=== PATIENT | female | born 1990 | race Caucasian/White ===

== ENCOUNTER 2016-08-07 16:50 | Emergency (ER) | payer BC ==
[2016-08-07 17:10] VITALS: BP 139/80
[2016-08-07] MEDS ORDERED: DOXYcycline CAP(*) 100 MG PO ONE (18:17)
[2016-08-07] MEDS ORDERED: Lidocaine/Epineph/Tetraca SOL* (LET solution) 4 ML BTL ONE (18:20)
[2016-08-07] MEDS: Lidocaine/Epineph/Tetraca SOL* (LET solution) 4 ML BTL TOPICAL ONE (18:23)
[2016-08-07] MEDS ORDERED: DOXYcycline CAP(*) 100 MG PO SCH (21:00)
--- NOTE | 2016-08-07 22:08 | UC ---
Edmond Alex Erika, scribed for Zoila Lima MD on 08/07/16 at 1802 . Skin Complaint HPI - HPI Summary HPI Summary: Patient is a 26-year-old female presenting to [facility] with a CC of an abscess to her right hand for the past 5 days. Patient rates the pain a constant 10/10. Patient states she has many allergies to pain medications and antibiotics, but can take docycycline and topical lidocaine. 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 Pt reports surgical removal of an abscess in her axilla. - History of Current Complaint Chief Complaint: UCSkin Time Seen by Provider: 08/07/16 17:46 Stated Complaint: SKIN COMPLAINT Hx Obtained From: Patient, Family/Lathe Tender - Luiz Olivier, male friend with pt Hx Last Menstrual Period: 2 YEARS AGO ?: No Onset/Duration: Gradual Onset, Lasting Days - 5, Still Present Timing: Constant Onset Severity: Severe Current Severity: Severe Pain Intensity: 10 Pain Scale Used: 0-10 Numeric Location: Hand (Right) Character: Redness, Raised, Painful Aggravating: Touch Alleviating: Nothing Associated Signs & Symptoms: Positive: Tenderness. Negative: Red Streaks Related History: Other: - upon additional questioning pt's male friend states that pt last injected IV heroin on 08/05/16 - Allergy/Home Medications Allergies/Adverse Reactions: Allergies Allergy/AdvReac Type Severity Reaction Status Date / Time Lidocaine Allergy Severe SWELLING, Verified 08/07/16 17:12 PAIN MULTIPLE ANTIBIOTIC ALLERGIES Allergy Severe DIFFERING Uncoded 08/07/16 17:11 REACTIONS Home Medications: Home Medications Control Pill* 1 tab PO DAILY 08/07/16 [History Confirmed 08/07/16] DULoxetine CAP* [Cymbalta CAP*] 90 mg PO DAILY 08/07/16 [History Confirmed ] Review of Systems Constitutional: Negative Skin: Other - painful abscess to the right hand Eyes: Negative ENT: Negative Respiratory: Negative Cardiovascular: Negative Gastrointestinal: Negative Genitourinary: Negative Motor: Negative Neurovascular: Negative Musculoskeletal: Negative Neurological: Negative Psychological: Negative All Other Systems Reviewed And Are Negative: Yes PMH/Surg Hx/FS Hx/Imm Hx Previously Healthy: No - IVDU Respiratory History Of: Reports: Asthma - Surgical History Surgical History: Yes Surgery Procedure, Year, and Place: MULTIPLE SURGERIES FOR MRSA INFECTIONS, TONSILLECTOMY, EAR TUBES X2 - Family History Known Family History: Positive: Diabetes, Other - breast cancer, ovarian cancer - Social History Alcohol Use: Daily Alcohol Amount: 1 GLASS WINE/DAY Substance Use Type: Heroin, Marijuana Smoking Status (MU): Current Some Day Smoker Type: Cigarettes Amount Used/How Often: 1 PPD Physical Exam Triage Information Reviewed: Yes Appearance: Well-Appearing, Well-Nourished, Pain Distress, Signs of Trauma - signs of IVDU, Other: - Odor similar to EtOH noted Vital Signs: Initial Vital Signs Temp 97.8 F 08/07/16 17:05 Pulse 115 08/07/16 17:05 Resp 16 08/07/16 17:05 BP 139/80 08/07/16 17:05 Pulse Ox 98 08/07/16 17:05 Vital Signs Reviewed: Yes Eyes: Positive: Conjunctiva Clear ENT: Positive: Normal ENT inspection Neck: Positive: Supple Respiratory: Positive: No respiratory distress Cardiovascular: Positive: RRR, Pulses Normal, Brisk Capillary Refill Musculoskeletal: Positive: Strength Intact, ROM Intact Neurological: Positive: Alert, Muscle Tone Normal Psychological Exam: Normal Skin Exam: Other - 3 cm rasied abscess on the dorsum of the right hand over the 3rd and 4th metatarsals. There is swelling of the dorsum of the hand. There is redness and pain on palpation. Track mendoza on the left inner elbow and bilateral thumbs Re-Evaluation - Re-Evaluation First Eval Re-Evaluation Time: 18:29 Comment: Discussed Dr. Lozoya's recommendations with patient. Pt reports she injects heroin, and friend with patient states she most recently injected 2 days ago. Patient reports she has injected in her thumbs and her inner elbow veins, but not in the dorsum of her hand. Patient is offered transfer to the ED for further testing and drainage of the abscess, but she declines and elopes from [facility]. Pt refused to sign AMA paperwork. Course/Dx - Course Course Of Treatment: LET applied at 18:23. Doxycycline administered. discussed with Dr. Lozoya. Pt may be seen tomorrow by orthopedics. Pt eloped after hx of IVDU is evident and advised to go to ED for further eval of swelling to determine clot vs abscess. Luiz Olivier witnessed the encounter and understands my recommendations. Pt ripped up the AMA form. Pt states she can't afford the $150 copay to go to the ED. States she is going to "drain it herself". Pt is risk for sepsis and risk for endocarditis with her hx MRSA. Advised pt that her RX for doxycycline is at her pharmacy. - Differential Diagnoses - Skin Complaint Differential Diagnoses: Abscess, Cellulitis, MRSA, Other - clot - Diagnoses Provider Diagnoses: AMA - Physician Notification/Consults Discussed Patient Care With: Call out to Dr. Lozoya (orthopedics) at 18:23 - recommends draining the abscess now. (before hx of heroin use is known). She is aware of patient. recommends follow up tomorrow. (before hx of IVDU known). Discharge - Discharge Plan Condition: Stable Disposition: AGAINST MEDICAL ADVICE Discharge Disposition Comment: Elopement Prescriptions: DOXYcycline CAP(*) [DOXYcycline 100MG CAP(*)] 100 mg PO BID #20 cap The documentation as recorded by the Edmond hernandez Erika accurately reflects the service I personally performed and the decisions made by me, Zoila Lima MD.
== END 2016-08-07 18:48 | disposition left against medical advice (07) ==
LOC: UCEAST 16:50
DX: L02.511 Cutaneous abscess of right hand (principal); Z53.20 Procedure and treatment not carried out because of patient's decision for unspecified reasons
CPT/HCPCS: 99202; A9270-GY; G0463

== ENCOUNTER 2016-08-08 01:42 | Emergency (ER) | payer BC ==
[2016-08-08 02:09] VITALS: BP 140/88
[2016-08-08] MEDS ORDERED: DOXYcycline IV* 100 MG in NS 0.9% 250 ML* 250 ML IVPB ONE (02:09)
--- NOTE | 2016-08-08 02:16 | ED ---
Miki Alex Rebecca, scribed for Nir Perez MD on 08/08/16 at 0212 . Skin Complaint - HPI Summary HPI Summary: Pt is a 26 y/o F who presents to ED with a CC of R-hand abscess. Abscess is erythematous and raised, on the doral surface of the hand. Pt reports abscess has been present and worsening for 5 days. Sx aggravated and alleviated by nothing. Denies fever. Prior similar episodes (6th episode in the last 5 years) with a dx of Staph. pt was seen at urgent care yesterday, left ama - History of Current Complaint Time Seen by Provider: 08/08/16 02:07 Stated Complaint: RIGHT HAND ABCESS Hx Obtained From: Patient Hx Last Menstrual Period: 2 YEARS AGO Onset/Duration: Started Days Ago - 5 days, Still Present Timing: Constant Onset Severity: Moderate Current Severity: Moderate Skin Location: Hand - right Character: Redness, Raised Aggravating Symptom(s): Nothing Alleviating Symptom(s): Nothing Associated Signs & Symptoms: Negative - Allergy/Home Medications Allergies/Adverse Reactions: Allergies Allergy/AdvReac Type Severity Reaction Status Date / Time Lidocaine Allergy Severe SWELLING, Verified 08/07/16 17:12 PAIN MULTIPLE ANTIBIOTIC ALLERGIES Allergy Severe DIFFERING Uncoded 08/07/16 17:11 REACTIONS PMH/Surg Hx/FS Hx/Imm Hx Endocrine/Hematology History: Denies: Hx Diabetes Cardiovascular History: Denies: Hx Hypertension Respiratory History: Reports: Hx Asthma - Surgical History Surgery Procedure, Year, and Place: MULTIPLE SURGERIES FOR MRSA INFECTIONS, TONSILLECTOMY, EAR TUBES X2 Infectious Disease History: Reports: Hx of Known/Suspected MRSA - Family History Known Family History: Positive: Diabetes, Other - breast cancer, ovarian cancer - Social History Alcohol Use: Daily Alcohol Amount: 1 GLASS WINE/DAY Substance Use Type: Reports: Heroin, Marijuana Smoking Status (MU): Current Some Day Smoker Type: Cigarettes Amount Used/How Often: 1 PPD Review of Systems Negative: Fever Positive: Other - Right hand abscess All Other Systems Reviewed And Are Negative: Yes Physical Exam Triage Information Reviewed: Yes Vital Signs On Initial Exam: Initial Vitals Temp Pulse Resp BP Pulse Ox 98.2 F 108 18 140/88 95 08/08/16 02:04 08/08/16 02:04 08/08/16 02:04 08/08/16 02:04 08/08/16 02:04 Vital Signs Reviewed: Yes Appearance: Positive: Well-Appearing, Pain Distress - mild discomfort Skin: Positive: Warm Head/Face: Positive: Normal Head/Face Inspection Eyes: Positive: ZOHREH ENT: Positive: Hearing grossly normal Neck: Positive: Supple Respiratory/Lung Sounds: Positive: Clear to Auscultation, Breath Sounds Present Cardiovascular: Positive: RRR Abdomen Description: Positive: Nontender, Soft Musculoskeletal: Positive: Other - rt hand diffuse warmth, erythema on volar surfaqce, small area of fluctuance over 3rd mcp area mild lymphangitic streaking pain with flexion of fingers Neurological: Positive: Normal Psychiatric: Positive: Affect/Mood Appropriate Procedures - Incision and Drainage Site: rt hand Anesthesia: Topical Instrument(s): Needle - 1.5 cc purulent material drained Diagnostics - Vital Signs Vital Signs Temp Pulse Resp BP Pulse Ox 08/08/16 02:04 98.2 F 108 18 140/88 95 - Laboratory Result Diagrams: 08/08/16 02:35 08/08/16 02:35 Lab Statement: Any lab studies that have been ordered have been reviewed, and results considered in the medical decision making process. - Radiology Hand XR Xray Interpretation: No Acute Changes Radiology Interpretation Completed By: ED Physician Re-Evaluation - Re-Evaluation First Eval Re-Evaluation Time: 03:30 - explained to pt need for admission and iv abx explained possible loss of hand, worsening infection, pt understands but refuses to stay in hospital pt walked out of ed without signing ama form Course/Dx - Course Assessment/Plan: Pt is a 26 y/o F with a CC of R-hand abscess for 5 days. Denies any fever. 5 previous similar episodes, with a dx of Staph, per pt. Pt refused to stay in the ED and left AMA. - Diagnoses Provider Diagnoses: Cellulitis of hand Discharge - Discharge Plan Condition: Good Disposition: AGAINST MEDICAL ADVICE Referrals: Non Staff,Doctor [Primary Care Provider] - The documentation as recorded by the Miki hernandez Rebecca accurately reflects the service I personally performed and the decisions made by me, Nir Perez MD.
[2016-08-08 02:44] LABS: Hematocrit 44 % (35-47); Hemoglobin 14.4 g/dl (12.0-16.0); Mean Corpuscular HGB Conc 33 g/dl (31-36); Mean Corpuscular Hemoglobin 28 pg (27-31); Mean Corpuscular Volume 86 fL (80-97); Mean Platelet Volume 10 um3 (7.4-10.4); Red Blood Count 5.09 10^6/ul (4.0-5.4); Red Cell Distribution Width 15 % (10.5-15); White Blood Count 15.7 10^3/ul (3.5-10.8)
[2016-08-08 03:10] LABS: Albumin 4.1 g/dL (3.2-5.2); BUN/Creatinine Ratio 16.7 (8-20); Calcium 9.6 mg/dL (8.6-10.3); EGFR African American 202.7 (>60); EGFR Non-African American 157.6 (>60); Globulin 3.3 g/dL (2-4); Total Bilirubin 0.3 mg/dL (0.2-1.0); Total Protein 7.4 g/dL (6.4-8.9)
[2016-08-08] MEDS ORDERED: DOXYcycline CAP(*) 100 MG PO ONE (03:18)
[2016-08-08] MEDS ORDERED: Ethyl Chloride SPRAY (NF) BTL ONE (03:44)
[2016-08-08] MEDS ORDERED: Ketorolac INJ* 60 MG/2 ML VIAL IM ONE (04:03)
--- NOTE | 2016-08-08 07:51 | RAD ---
INDICATION: Right hand abscess COMPARISON: None. TECHNIQUE: 2 views of the right hand were obtained. FINDINGS: Overlying the dorsal hand there is thickening and subcutaneous induration. The adequately corticated bones are in normal alignment. No significant focal osseous abnormality or fracture is seen. Joint spaces appear maintained. IMPRESSION: Soft tissue swelling without underlying bony abnormality or subcutaneous foreign body. If the patient's symptoms persist, follow-up imaging is recommended.
== END 2016-08-08 04:22 | disposition left against medical advice (07) ==
LOC: ED 01:42
DX: L03.113 Cellulitis of right upper limb (principal); L02.511 Cutaneous abscess of right hand; Z72.0 Tobacco use
CPT/HCPCS: 36415; 80053; 85025; 96372; 99282; A9270-GY

== ENCOUNTER 2016-08-08 08:26 | Inpatient (IN) | payer BC ==
[2016-08-08] MEDS ORDERED: Vancomycin(*) 1,000 MG in NS 0.9% 250 ML* 250 ML IVPB ONE (09:11)
[2016-08-08] MEDS ORDERED: NS 0.9% 1000 ML* 2,000 ML IV ONE (09:12)
[2016-08-08 09:31] LABS: Hematocrit 45 % (35-47); Hemoglobin 14.5 g/dl (12.0-16.0); Mean Corpuscular HGB Conc 33 g/dl (31-36); Mean Corpuscular Hemoglobin 28 pg (27-31); Mean Corpuscular Volume 86 fL (80-97); Mean Platelet Volume 10 um3 (7.4-10.4); Red Blood Count 5.18 10^6/ul (4.0-5.4); Red Cell Distribution Width 15 % (10.5-15)
[2016-08-08 09:48] LABS: BUN/Creatinine Ratio 12.5 (8-20); Calcium 9.3 mg/dL (8.6-10.3); EGFR African American 169.6 (>60); EGFR Non-African American 131.9 (>60); Globulin 3.3 g/dL (2-4); Potassium 4.1 mmol/L (3.5-5.0); Total Bilirubin 0.3 mg/dL (0.2-1.0); Total Protein 7.3 g/dL (6.4-8.9)
[2016-08-08] MEDS ORDERED: Nicotine PATCH 21 MG/24 HR* PATCH TRANSDERM ONE (11:24)
[2016-08-08] MEDS ORDERED: Nicotine PATCH 21 MG/24 HR* PATCH ONE (11:25)
[2016-08-08] MEDS ORDERED: diPHENhydraMINE PO* 25 MG PO PRN (15:28)
[2016-08-08] MEDS ORDERED: Ondansetron TAB* 4 MG PO PRN (15:28)
[2016-08-08] MEDS ORDERED: oxyCODONE/Acetamin 5/325 MG* TAB PO PRN ×2 (15:28→17:23)
[2016-08-08] MEDS ORDERED: Ondansetron INJ* 2 MG/ML VIAL IV PRN (15:28)
[2016-08-08] MEDS ORDERED: Acetaminophen TAB* 325 MG PO PRN (15:28)
[2016-08-08] MEDS ORDERED: NS 0.9% 1000 ML* 1,000 ML IV SCH (15:30)
[2016-08-08] MEDS ORDERED: Piperac/Tazob 3.375 gm in NS* 3.375 GM/100 ML BAG IVPB ONE (16:30)
[2016-08-08] MEDS ORDERED: Morphine INJ* 2 MG/ML 1 ML CARPUJECT IV PRN (17:25)
[2016-08-08] MEDS ORDERED: Vancomycin(*) 0 MG in NS 0.9% 250 ML* 250 ML IVPB SCH (18:00)
[2016-08-08] MEDS ORDERED: Vancomycin per Pharmacy* NOTE FOLLOW UP PRN (18:24)
[2016-08-08] MEDS ORDERED: Nicotine Patch Removal NOTE PATCH OFF SCH (21:00)
[2016-08-08] MEDS: Morphine INJ* 2 MG/ML 1 ML CARPUJECT IM PRN ×2 (21:25→23:42)
--- NOTE | 2016-08-08 21:25 | CONS ---
CONSULTATION REPORT: DATE OF CONSULT: 08/08/16 PRIMARY CARE PROVIDER: Dr. Grant from [place], [place]. The fax number is . CONSULTATIONS REQUESTED BY: Dr. Do from emergency department and Dr. Lozoya from Orthopedic Surgery. CHIEF COMPLAINT: Right hand abscess. HISTORY OF PRESENT ILLNESS: Ms. Landers is a 26-year-old female with history of MRSA infections in the past and multiple abscesses in the past, as well as IV heroin use, who presented originally to our [facility] on 08/07/16 with complaints of right hand abscess for 5 days. The patient was directed to our ED to be further evaluated, but she eloped from [facility] without signing against medical advice documentation. She came back to our facility in the juvenile justice officer hours of 08/08/16. She was also told by the ER physician that she needs to have an I and D of the abscess and most likely will require IV antibiotics. At this point, she also walked out of the ER. She came back 5 hours later on the same day; and currently, she is willing to stay to have the abscess I and D'd. The Orthopedic Surgery physician kindergarten teacher assistant saw and evaluated the patient. Apparently, due to the patient's history of being ALLERGIC TO LOCAL INJECTION of LIDOCAINE, the patient is planned for a general anesthesia for an I and D of the hand abscess. Due to that she ate within the past couple of hours, the surgery is planned for the morning. Medical assistance was requested by both the ER physician and the orthopedic surgeon in regards to the patient's treatment of the right hand abscess. PAST MEDICAL HISTORY: 1. History of right axillary abscess I and D'd in 2011. The patient stated that that abscess was MRSA positive and she was treated with doxycycline as an outpatient. 2. The patient has also history of right flank abscess on the skin, also I and D'd in the ER in [place] a couple of years ago. 3. Most recently, the patient had right forearm abscess 6 months ago that she stated that she evacuated by herself. OUTPATIENT MEDICATIONS: Include: 1. Cymbalta 90 mg daily. 2. control pills on a daily basis. ALLERGIES: Include LOCAL INJECTION of LIDOCAINE as well as CEPHALEXIN and LEVOFLOXACIN. FAMILY HISTORY: Positive for father with history of COPD, diabetes, hypertension, and heart disease. Mother with history of COPD. Maternal grandmother with history of abdominal cancer as well as breast cancer. Maternal grandfather with history of brain cancer. SOCIAL HISTORY: The patient has a history of smoking 1 pack per day ever since she turned 14. She drinks a couple of glasses of alcohol a day, usually wine. She has history of IV heroin use; last time she used was approximately 3 or 4 days ago. 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 She is single and her surrogate is her male partner. His name is Demar Olivier, phone number [phone]. REVIEW OF SYSTEMS: The patient stated that she felt "feverish" for the past couple of days, but no documented fevers. Her appetite has been good. She denies any rigors or chills. The right hand is painful and the abscess was aspirated at [facility] 24 hours ago. The remaining review of systems were reviewed with the patient and were otherwise negative. PHYSICAL EXAM: Blood pressure 117/82, heart rate of 102 and regular, respiratory rate 16, oxygen saturation 95% on room air, and temperature of 98.0. General: The patient is a very pleasant 26-year-old female who is in no acute distress. The patient is alert, awake, and oriented x3. HEENT: Head: Atraumatic, normocephalic. Eyes: Pupils equal, reactive to light and accommodation. Oropharynx clear. Mucosa moist. Poor dentition. Neck: Supple. No JVD, no bruit bilaterally. Cardiovascular: Regular rate and rhythm. No murmur. Respiratory: Clear to auscultation bilaterally. Abdomen: Soft, nontender. Bowel sounds present in all 4 quadrants. Extremities: There is right hand edema. On the dorsum of the right hand, the patient has a loculation of approximately 2 cm in diameter. The abscess is tender to palpation with some superficial edema and A small area of cellulitis surrounding. The patient has no problems with moving her right wrist and the joints of her fingers. Evaluation of the other extremities - the patient has track mendoza in bilateral antecubital areas with no evidence of cellulitis. Pulses are +2 bilaterally. There is no pedal edema noted bilaterally. Skin Evaluation: As mentioned above. Otherwise unremarkable. Neuro Evaluation: Speech clear. Cranial nerves II through XII grossly intact. Motor strength is 5 /5 bilaterally. DIAGNOSTIC STUDIES/LAB DATA: Showed a white blood cell count of 16.0, hemoglobin of 14.5, hematocrit of 45, and platelets of 216. Sodium was 136, potassium 4.1, chloride 101, carbon dioxide 27, BUN 7, creatinine 0.56. Liver functions were unremarkable. Lactic acid was 1.2. Hand x-rays, impression: "Soft tissue swelling without underlying bony abnormality or subcutaneous foreign body." ASSESSMENT AND PLAN: In regards to right dorsum of the hand abscess, an I and D is planned as recommended by orthopedic surgeons in the morning. Due to the patient's history of REACTION TO LIDOCAINE that was demonstrated in the past as extreme burning, pain, and edema, the patient is going to most likely have general anesthesia for the procedure with Dr. Lozoya in the morning. In regards to cellulitis and abscess treatment, I suspect that it is again MRSA. Cultures obtained from the aspiration of the abscess a day prior are pending; but so far, it appears polymicrobial with 4+ gram-positive cocci as well as gram-positive bacilli and gram-negative bacilli. In fact, at this point , it appears that the cultures just came back as MRSA negative. The patient received a dose of intravenous vancomycin in the emergency department. It appears that for this polymicrobial infection, Zosyn also may be a good antibiotic to continue until the I and D is completed. As outpatient, doxycycline as the patient used before appears to be a good option. In regards to tobacco use, the patient is going to be placed on nicotine patch and inhaler to ease withdrawal symptoms. For her DVT prophylaxis, the patient is ambulatory and low risk. Thank you very much for allowing me to participate in your patient's care. We will see the patient on a daily basis. CC: Dr. Grant from [place], [place], the fax number is [phone]; Dr. Lozoya * [id number]/[facility] #: [id number] [facility]
[2016-08-08] MEDS: Vancomycin(*) 1,000 MG in NS 0.9% 250 ML* 250 ML IVPB SCH (21:28)
[2016-08-08] MEDS: Piperac/Tazob 3.375 gm in NS* 3.375 GM/100 ML BAG IVPB SCH (21:28)
[2016-08-08] MEDS ORDERED: Mouth Piece, Nicotine* 1 EACH CARTRIDGE ONE (21:38)
[2016-08-08] MEDS: Nicotine Inhaler* 10 MG AMP INH PRN (21:39)
[2016-08-08] MEDS: Nicotine PATCH 21 MG/24 HR* PATCH TRANSDERM SCH (23:36)
[2016-08-09] MEDS: Vancomycin(*) 1,000 MG in NS 0.9% 250 ML* 250 ML IVPB SCH ×4 (03:36→16:36)
[2016-08-09] MEDS: Piperac/Tazob 3.375 gm in NS* 3.375 GM/100 ML BAG IVPB SCH ×3 (06:26→19:03)
--- NOTE | 2016-08-09 07:46 | HP ---
HISTORY AND PHYSICAL: DATE OF ADMISSION: 08/08/16 DATE OF SURGERY: 08/09/16 SURGEON: Kaushik Lozoya MD PROCEDURE: I and D, right hand. CHIEF COMPLAINT: Right hand pain. HISTORY OF PRESENT ILLNESS: Anel is a 26-year-old female who noticed swelling and pain in her right hand which started approximately 5 days ago. She then noticed significant swelling, dorsal aspect of the right hand with redness and warmth. She has a history of multiple staph infections in the past. She presented to urgent care yesterday and left AMA and then presented to the emergency department early this a.m. She denies any fevers, shakes, or chills. PAST MEDICAL HISTORY: 1. Asthma. 2. IV drug abuse. PAST SURGICAL HISTORY: 1. I and D's for multiple infections. 2. Tonsillectomies and a ear tube placement. CURRENT MEDICATIONS: Duloxetine and unknown control. ALLERGIES: To LIDOCAINE, LEVOFLOXACIN, and KEFLEX. FAMILY HISTORY: Diabetes, breast cancer, ovarian cancer. SOCIAL HISTORY: She is a 26-year-old female. She is a known IV drug user, heroin. She also reports marijuana use and smokes cigarettes. REVIEW OF SYSTEMS: A complete 14-point review of systems was reviewed with the patient. It was positive for past skin infections with MRSA. She denies hepatitis C or HIV. She denies any anesthesia problems, DVT, or PE. PHYSICAL EXAMINATION GENERAL: She is well developed, well nourished in no acute distress. VITAL SIGNS: She is afebrile. Her vital signs are stable. Her blood pressure 140/88, heart rate is 108. HEENT: Normocephalic, atraumatic. NECK: Supple. Trachea is midline. PULMONARY: The lungs are clear to auscultation bilaterally. CARDIO: Regular rate and rhythm. ABDOMEN: Soft, nontender, nondistended. NEUROLOGICAL: She is alert and oriented x3 and cranial nerves II through XII are intact. MUSCULOSKELETAL: Right hand is diffusely warm. Significant erythema on the volar surface. There is a 1/2-dollar size area of fluctuance over the third metacarpal. She has pain with active and passive range of motion on the right wrist and finger flexion. She has good capillary refill, 2+ distal radius pulses. ASSESSMENT AND PLAN: Anel is a 26-year-old female with 5-day history of swelling and pain of her right hand. She has a history of multiple staph infections in the past. She presents with right hand cellulitis. She is a known IV drug abuser. She is being admitted under Dr. Lozoya and is scheduled for an I and D of the right hand tomorrow. She will be placed on IV antibiotics and kept n.p.o. after midnight. POLI KRISHNAN Addendum Seen and examined. Agree with above. H/o IV drug abuse with abscess in right hand. Will plan for open I and D of right dorsum of the hand. [id number]/[facility] #: [id number] MTDD
[2016-08-09] MEDS: Nicotine PATCH 21 MG/24 HR* PATCH TRANSDERM SCH (08:08)
[2016-08-09] MEDS: Morphine INJ* 2 MG/ML 1 ML CARPUJECT IM PRN (08:09)
[2016-08-09] MEDS ORDERED: BIRTH CONTROL PILL PO SCH (09:00)
[2016-08-09] MEDS: DULoxetine DR CAP* 30 MG CAP.DR PO SCH ×2 (09:30→17:32)
--- NOTE | 2016-08-09 10:27 | PN ---
Progress Note - Progress Note SOAP: Subjective: NPO. Groggy and difficult to arouse. Not cooperative with nursing staff. IV lost access last evening. Meds given IM. Vanco deferred until this AM. IV access obtained with [facility] guidance. Refusing IV fluids and abx per nursing. Objective: Temp Pulse Resp BP Pulse Ox 97.5 F 101 16 122/75 100 08/09/16 07:30 08/09/16 07:30 08/09/16 09:09 08/09/16 07:30 08/09/16 08:16 NAD. AAOx3. Right hand dorsum with erythema and warmth. Fluctuant mass with surrounding erythema. Blood blister evident. Sensate to light to grossly. Able to flex/ext digits, thumbs up, ok sign. 2+ radial pulse Assessment: right hand abscess with surrounding cellulitis in IVDA Plan: Vanco IV NPO with IVF plan for right hand open I and D today. potential d/c home tomorrow
[2016-08-09 10:55] LABS: UR Preg Internal Control QC Line Present
[2016-08-09] MEDS ORDERED: Metoclopramide TAB* 10 MG PO ONE (11:07)
[2016-08-09] MEDS ORDERED: Famotidine IV* 10 MG/ML 2 ML (20 mg) IV ONE (11:07)
[2016-08-09] MEDS ORDERED: Famotidine IV* 10 MG/ML 2 ML (20 mg) ONE (11:14)
[2016-08-09] MEDS ORDERED: fentaNYL* 50 MCG/ML 2 ML VIAL (100 MCG VIAL) ONE ×4 (11:14→15:37)
[2016-08-09] MEDS ORDERED: Metoclopramide TAB* 10 MG ONE (11:15)
[2016-08-09] MEDS: fentaNYL* 50 MCG/ML 2 ML VIAL (100 MCG VIAL) IV SLOW PU PRN ×2 (11:22→13:06)
[2016-08-09] MEDS ORDERED: KETAMINE HCL* 50 MG/ML 10 ML VIAL ONE (11:25)
[2016-08-09] MEDS ORDERED: Midazolam* 1 MG/ML 5 ML VIAL (5 MG) ONE (11:25)
[2016-08-09] MEDS ORDERED: Propofol* 10 MG/ML 20 ML BTL IV PUSH ONE (11:25)
[2016-08-09] MEDS ORDERED: Ondansetron INJ* 2 MG/ML VIAL ONE (11:25)
[2016-08-09] MEDS ORDERED: Ketorolac INJ* 30 MG/ML 1 ML VIAL ONE (11:25)
[2016-08-09] MEDS ORDERED: Lidocaine 1% INJ* 10 MG/ML 30 ML SDV ONE (13:14)
[2016-08-09] MEDS ORDERED: HYDROmorphone INJ* 1 MG/ML CARPUJECT SYRINGE ONE ×2 (14:11→14:51)
[2016-08-09] MEDS ORDERED: Ondansetron INJ* 2 MG/ML VIAL IV PRN (14:42)
[2016-08-09] MEDS: HYDROmorphone INJ* 1 MG/ML CARPUJECT SYRINGE IV PRN ×2 (14:55→15:07)
[2016-08-09] MEDS: fentaNYL* 50 MCG/ML 2 ML VIAL (100 MCG VIAL) IV PRN ×4 (15:20→15:50)
[2016-08-09] MEDS: Nicotine Inhaler* 10 MG AMP INH PRN (16:33)
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
[2016-08-09] MEDS ORDERED: Morphine INJ* 2 MG/ML 1 ML CARPUJECT IV ONE (18:00)
[2016-08-09 23:19] VITALS: BP 124/84
--- NOTE | 2016-08-10 08:26 | ED ---
Esvin Alex Salem, scribed for Tyson Do MD on 08/08/16 at 0911 . Skin Complaint - HPI Summary HPI Summary: Patient is a 26 y/o female who reports to [facility] with right hand abscess since last night. She reports presenting to the ED the previous night for the same complaint, but left AMA after receiving doxycycline. Associated sx include cellulitis and erythema. PMHx is significant for MRSA infections. - History of Current Complaint Chief Complaint: EDRashSkinAbscess Time Seen by Provider: 08/08/16 08:35 Stated Complaint: INFECTION TO HAND Hx Obtained From: Patient Hx Last Menstrual Period: 2 YEARS AGO Onset/Duration: Started Days Ago - 5 days., Still Present Pain Intensity: 11 Pain Scale Used: 0-10 Numeric Skin Location: Hand - Right. Character: Redness Aggravating Symptom(s): Nothing Alleviating Symptom(s): Nothing Associated Signs & Symptoms: Negative - Allergy/Home Medications Allergies/Adverse Reactions: Allergies Allergy/AdvReac Type Severity Reaction Status Date / Time Lidocaine Allergy Severe SWELLING, Verified 08/07/16 17:12 PAIN Cephalexin [From Keflex] Allergy Anaphylatic Verified 08/08/16 08:30 Shock Levofloxacin [From Levaquin] Allergy Anaphylatic Verified 08/08/16 08:30 Shock MULTIPLE ANTIBIOTIC ALLERGIES Allergy Severe DIFFERING Uncoded 08/07/16 17:11 REACTIONS PMH/Surg Hx/FS Hx/Imm Hx Endocrine/Hematology History: Denies: Hx Diabetes Cardiovascular History: Denies: Hx Hypertension Respiratory History: Reports: Hx Asthma - Surgical History Surgery Procedure, Year, and Place: MULTIPLE SURGERIES FOR MRSA INFECTIONS, TONSILLECTOMY, EAR TUBES X2 Infectious Disease History: Yes Infectious Disease History: Reports: Hx of Known/Suspected MRSA Denies: Traveled Outside the [place] in Last 30 Days - Family History Known Family History: Positive: Diabetes, Other - breast cancer, ovarian cancer - Social History Alcohol Use: Daily Alcohol Amount: 1 GLASS WINE/DAY Substance Use Type: Reports: Heroin, Marijuana Smoking Status (MU): Current Some Day Smoker Type: Cigarettes Amount Used/How Often: 1 PPD Review of Systems Negative: Fever Positive: Other - Abscess on right hand. All Other Systems Reviewed And Are Negative: Yes Physical Exam Triage Information Reviewed: Yes Vital Signs On Initial Exam: Initial Vitals Temp Pulse Resp BP Pulse Ox 98.0 F 112 18 132/92 100 08/08/16 08:30 08/08/16 08:30 08/08/16 08:30 08/08/16 08:30 08/08/16 08:30 Vital Signs Reviewed: Yes Appearance: Positive: Well-Appearing, No Pain Distress Skin: Positive: Warm, Skin Color Reflects Adequate Perfusion, Dry, Other - Abscess on the dorsum right hand with cellulitis and erythema. Traction mendoza on left hand. Head/Face: Positive: Normal Head/Face Inspection Eyes: Positive: Normal Neck: Positive: Supple, Nontender Musculoskeletal: Positive: Normal Neurological: Positive: Normal Psychiatric: Positive: Normal, Affect/Mood Appropriate AVPU Assessment: Alert Diagnostics - Vital Signs Vital Signs Temp Pulse Resp BP Pulse Ox 08/08/16 08:30 98.0 F 112 18 132/92 100 - Laboratory Lab Results: Lab Results 08/08/16 08/08/16 08/08/16 Range/Units 09:00 09:00 09:00 WBC 16.0 H (3.5-10.8) 10^3/ul RBC 5.18 (4.0-5.4) 10^6/ul Hgb 14.5 (12.0-16.0) g/dl Hct 45 (35-47) % MCV 86 (80-97) fL MCH 28 (27-31) pg MCHC 33 (31-36) g/dl RDW 15 (10.5-15) % Plt Count 216 (150-450) 10^3/ul MPV 10 (7.4-10.4) um3 Neut % (Auto) 72.5 (38-83) % Lymph % (Auto) 20.6 L (25-47) % [place] % (Auto) 5.2 (1-9) % Eos % (Auto) 1.1 (0-6) % Baso % (Auto) 0.6 (0-2) % Absolute Neuts (auto) 11.6 H (1.5-7.7) 10^3/ul Absolute Lymphs (auto) 3.3 (1.0-4.8) 10^3/ul Absolute Monos (auto) 0.8 (0-0.8) 10^3/ul Absolute Eos (auto) 0.2 (0-0.6) 10^3/ul Absolute Basos (auto) 0.1 (0-0.2) 10^3/ul Absolute Nucleated RBC 0.01 10^3/ul Nucleated RBC % 0.1 INR (Anticoag Therapy) 0.95 (0.89-1.11) Sodium 136 (133-145) mmol/L Potassium 4.1 (3.5-5.0) mmol/L Chloride 101 (101-111) mmol/L Carbon Dioxide 27 (22-32) mmol/L Anion Gap 8 (2-11) mmol/L BUN 7 (6-24) mg/dL Creatinine 0.56 (0.51-0.95) mg/dL Est GFR ( Amer) 169.6 (>60) Est GFR (Non-Af Amer) 131.9 (>60) BUN/Creatinine Ratio 12.5 (8-20) Glucose 106 H (70-100) mg/dL Lactic Acid (0.5-2.0) mmol/L Calcium 9.3 (8.6-10.3) mg/dL Total Bilirubin 0.30 (0.2-1.0) mg/dL AST 16 (13-39) U/L ALT 11 (7-52) U/L Alkaline Phosphatase 127 H (34-104) U/L Total Protein 7.3 (6.4-8.9) g/dL Albumin 4.0 (3.2-5.2) g/dL Globulin 3.3 (2-4) g/dL Albumin/Globulin Ratio 1.2 (1-3) 08/08/16 Range/Units 09:00 WBC (3.5-10.8) 10^3/ul RBC (4.0-5.4) 10^6/ul Hgb (12.0-16.0) g/dl Hct (35-47) % MCV (80-97) fL MCH (27-31) pg MCHC (31-36) g/dl RDW (10.5-15) % Plt Count (150-450) 10^3/ul MPV (7.4-10.4) um3 Neut % (Auto) (38-83) % Lymph % (Auto) (25-47) % [place] % (Auto) (1-9) % Eos % (Auto) (0-6) % Baso % (Auto) (0-2) % Absolute Neuts (auto) (1.5-7.7) 10^3/ul Absolute Lymphs (auto) (1.0-4.8) 10^3/ul Absolute Monos (auto) (0-0.8) 10^3/ul Absolute Eos (auto) (0-0.6) 10^3/ul Absolute Basos (auto) (0-0.2) 10^3/ul Absolute Nucleated RBC 10^3/ul Nucleated RBC % INR (Anticoag Therapy) (0.89-1.11) Sodium (133-145) mmol/L Potassium (3.5-5.0) mmol/L Chloride (101-111) mmol/L Carbon Dioxide (22-32) mmol/L Anion Gap (2-11) mmol/L BUN (6-24) mg/dL Creatinine (0.51-0.95) mg/dL Est GFR ( Amer) (>60) Est GFR (Non-Af Amer) (>60) BUN/Creatinine Ratio (8-20) Glucose (70-100) mg/dL Lactic Acid 1.2 (0.5-2.0) mmol/L Calcium (8.6-10.3) mg/dL Total Bilirubin (0.2-1.0) mg/dL AST (13-39) U/L ALT (7-52) U/L Alkaline Phosphatase (34-104) U/L Total Protein (6.4-8.9) g/dL Albumin (3.2-5.2) g/dL Globulin (2-4) g/dL Albumin/Globulin Ratio (1-3) Result Diagrams: 08/08/16 09:00 08/08/16 09:00 Lab Statement: Any lab studies that have been ordered have been reviewed, and results considered in the medical decision making process. Course/Dx - Course Course Of Treatment: Anel Landers represented to the ED this AM. She had been seen and evaluated during the night for a right hand cellulitis and abscess and recommended admission and surgery. She left AMA because of difficulty in obtaining IV access. A peripheral IV was obtained here immediately using U/S and orthopedics was notified of her arrival. - Diagnoses Provider Diagnoses: Abscess of hand, Cellulitis of hand - Physician Notifications Discussed Care Of Patient With: Dr. Lozoya (Orthopedist) @ [phone]. Dr. Wu ( hospitalist) 1000. Instructed by Provider To: Admit As Inpatient Discharge - Discharge Plan Condition: Stable Disposition: ADMITTED TO [facility] The documentation as recorded by the Esvin hernandez Salem accurately reflects the service I personally performed and the decisions made by me, Tyson Do MD.
[2016-08-10] MEDS ORDERED: Vancomycin Trough Check NOTE FOLLOW UP ONE (10:00)
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
== END 2016-08-09 19:47 | disposition left against medical advice (07) | DRG 364 ==
LOC: ED 08:26 → SSU 11:28
PROVIDERS: ADMIT Orthopaedic Surgery; ATTEND Orthopaedic Surgery
PROC: 0J9J0ZZ Drainage of Right Hand Subcutaneous Tissue and Fascia, Open Approach (ICD-10-PCS; principal; 2016-08-09 12:00)
DX: L02.511 Cutaneous abscess of right hand (principal); L03.113 Cellulitis of right upper limb; F32.9 Major depressive disorder, single episode, unspecified; J45.909 Unspecified asthma, uncomplicated; F12.90 Cannabis use, unspecified, uncomplicated; F17.210 Nicotine dependence, cigarettes, uncomplicated; F11.10 Opioid abuse, uncomplicated; Z88.1 Allergy status to other antibiotic agents; Z88.4 Allergy status to anesthetic agent; Z83.3 Family history of diabetes mellitus; Z80.3 Family history of malignant neoplasm of breast; Z80.41 Family history of malignant neoplasm of ovary; Z86.14 Personal history of Methicillin resistant Staphylococcus aureus infection; Z72.89 Other problems related to lifestyle; Z82.49 Family history of ischemic heart disease and other diseases of the circulatory system; Z82.5 Family history of asthma and other chronic lower respiratory diseases; Z80.8 Family history of malignant neoplasm of other organs or systems
CPT/HCPCS: 36415; 80053; 81025; 83605; 85025; 85610; 87040; 87070; 87073; 87076; 87077; 87184; 87185; 87186; 87205; 87640; 87641; 96372; 99202; 99282; 99406; A9270-GY; G0463; J1170; J1885; J2250; J2270; J2405; J2543; J2704; J3010; J3370

== ENCOUNTER 2017-05-07 18:48 | Emergency (ER) | payer SELFPAY ==
[2017-05-07] MEDS ORDERED: Lidocaine/Epineph/Tetraca SOL* (LET solution) 4 ML BTL TOPICAL ONE (21:44)
[2017-05-07] MEDS ORDERED: Ketorolac INJ* 60 MG/2 ML VIAL IM ONE (21:45)
[2017-05-07] MEDS ORDERED: oxyCODONE/Acetamin 5/325 MG* TAB PO ONE (21:46)
--- NOTE | 2017-05-07 22:10 | ED ---
Upper Extremity Pain - HPI Summary HPI Summary: Pt here w/ Lt hand abscess past few days. Had a larger area in same location yesterday so she ruptured this herself with a needle at home. Reports copious amounts of purulent fluid came out and pain improved mostly after release of fluids. Today, she has a new area of infection near yesterdays infection - painful, swollen. Denies fever, chills, N/V/D, numbness, tingling, weakness. Pain is worse w/ moving fingers - feels it's pulling the skin over the affected area. No drainage from site - has scabbing over area she opened yesterday. She has track mendoza on B/L hands but denies IVDA at this time. Reports she hasn't injected heroin in years. She also denies ever using suboxone other than 1 time - made her sick so has never tried again. Also states she doesn't want to get hooked on another drug so doesn't take it. Does smoke and admits to occasional cocaine use. When asked about lidocaine allergy, she reports it's not an allergy but rather the pain of injecting lidocaine is greater than simply opening her abscesses after applying topical analgesics so she prefers to avoid lidocaine injection but is happy to use LET as she's had this in the past without difficulty. Also reports she has needed to have her abscesses "cut out" in the past and think she needs surgery tonight. Furthermore, she states she's needed to be on doxycycline for "double the strength and double the length of time". Chart indicates debridement I&D surgery with Dr. Lozoya in 07/2016. 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 - male partner is present w/ her Hx Last Menstrual Period: 2 YEARS AGO - Allergies/Home Medications Allergies/Adverse Reactions: Allergies Allergy/AdvReac Type Severity Reaction Status Date / Time Lidocaine Allergy Severe SWELLING, Verified 05/07/17 19:07 PAIN Cephalexin [From Keflex] Allergy Anaphylatic Verified 05/07/17 19:07 Shock Levofloxacin [From Levaquin] Allergy Anaphylatic Verified 05/07/17 19:07 Shock MULTIPLE ANTIBIOTIC ALLERGIES Allergy Severe DIFFERING Uncoded 05/07/17 19:07 REACTIONS PMH/Surg Hx/FS Hx/Imm Hx Previously Healthy: Yes Endocrine/Hematology History: Denies: Hx Diabetes Cardiovascular History: Denies: Hx Hypertension Respiratory History: Reports: Hx Asthma Psychiatric History: Reports: Hx Depression - Surgical History Surgery Procedure, Year, and Place: MULTIPLE SURGERIES FOR MRSA INFECTIONS, TONSILLECTOMY, EAR TUBES X2 Hx Anesthesia Reactions: No - Immunization History Date of Tetanus Vaccine: UTD Date of Influenza Vaccine: none Infectious Disease History: Yes Infectious Disease History: Reports: Hx of Known/Suspected MRSA Denies: Traveled Outside the [place] in Last 30 Days - Family History Known Family History: Positive: Diabetes, Other - breast cancer, ovarian cancer - Social History Alcohol Use: Weekly Alcohol Amount: 1 GLASS WINE/DAY Hx Substance Use: Yes Substance Use Type: Reports: Heroin, Marijuana Substance Use Comment - Amount & Last Used: former IV user, daily marijuana use Hx Tobacco Use: Yes Smoking Status (MU): Current Every Day Smoker Type: Cigarettes Amount Used/How Often: 1 PPD Review of Systems Constitutional: Negative Negative: Fever, Chills, Fatigue Cardiovascular: Negative Negative: Chest Pain Respiratory: Negative Negative: Shortness Of Breath Gastrointestinal: Negative Negative: Abdominal Pain, Vomiting, Diarrhea, Nausea Positive: no symptoms reported Positive: Edema - Lt hand Skin: Other - left hand Neurological: Negative Negative: Headache, Weakness, Paresthesia, Numbness, Syncope, Slurred Speech Positive: Anxious All Other Systems Reviewed And Are Negative: Yes Physical Exam Triage Information Reviewed: Yes Vital Signs On Initial Exam: Initial Vitals Temp Pulse Resp BP Pulse Ox 97.9 F 70 18 128/82 100 05/07/17 19:02 05/07/17 19:02 05/07/17 19:02 05/07/17 19:02 05/07/17 19:02 Vital Signs Reviewed: Yes Appearance: Positive: Well-Appearing, Pain Distress - pt is crying upon initial entrance to room - after speaking with her for a bit she stops crying. Skin: Positive: Warm, Dry - erythema over Lt dorsal hand with area of scabbing within (pt notes this is where she opened wound yesterday) - distal to this is a 1.5 cm area of raised, erythematous, boggy tender tissue; well defined borders - no streaking and no pain w/ palpation beyond well defined area Head/Face: Positive: Normal Head/Face Inspection Eyes: Positive: EOMI ENT: Positive: Hearing grossly normal Dental: Positive: Gross Decay/Caries @ - poor dentition Respiratory/Lung Sounds: Positive: Breath Sounds Present Cardiovascular: Positive: Pulses are Symmetrical in both Upper and Lower Extremities Musculoskeletal: Positive: Strength/ROM Intact, Pain @ - pt reports skin tightness/pressure over affected area with finger flexion of index and middle fingers; mild to no pain w/ passive ROM of fingers Neurological: Positive: Normal, Sensory/Motor Intact, Alert, Oriented to Person Place, Time, CN Intact II-III Psychiatric: Positive: Anxious - [place] Coma Scale Coma Scale Total: 15 Diagnostics - Vital Signs Vital Signs Temp Pulse Resp BP Pulse Ox 05/07/17 19:02 97.9 F 70 18 128/82 100 - Laboratory Lab Statement: Any lab studies that have been ordered have been reviewed, and results considered in the medical decision making process. Course/Dx - Course Course Of Treatment: Spoke w/ Dr. Palacios re: pt's Lt dorsal hand abscess. Discussed the possiblity of tenosynovitis - appears to be mostly superficial as pt does not have pain w/ passive ROM. He recommends I&D with PO anbx and f/u at hand specialist. Pt agrees w/ plan however after applying heat and LET area appears less swollen. Explained to pt it may not be beneficial to open the area as it's smaller now with heat and LET and it may not be fruitful to open wound however we can try if would like to see if this reduces pain. We also discussed possibility of just taking doxycyline by mouth and watching for improvement/ worsening. She was quite upset, tearful, screaming and crying, begging her partner to make a decision of whether to open the wound or not as she "couldn't make a decision as the pain is clouding my judgement" (moments earlier she was resting comfortably on stretcher having what appeared to be pleasant conversation with her partner and interacting well with myself). She repeatedly said, "I just want you to knock me out and fix it" through tears but she realized this was not an option at this time. After a discussion with her partner, they decided to trial PO doxycycline (previous cx reveals sensitivity with this anbx). She also agrees to implement supportive care and f/u w/ hand specialists if worse. She also requests xanax for her anxiety as this has been an anxiety provoking experience for her. She reports she takes 1-2mg per dose when she needs it - has taken her mom's in the past. Would like at least 1mg tonight to alleviate anxiety. Had non-judgmental conversation with her about IVDA and relayed wanting to provide best care possible for her specific circumstances - she continued to deny use so conversation was stopped at that time. Also explained the importance of follow-up with a PCP as she appears to have mental health issues that would benefit from regular care. Danger s/sx reviewed for when to return to ED. - Diagnoses Provider Diagnoses: Abscess of left hand, Anxiety Discharge - Discharge Plan Condition: Stable Disposition: HOME Prescriptions: DOXYcycline CAP(*) [DOXYcycline 100MG CAP(*)] 100 mg PO BID #[id number] cap Patient Education Materials: Abscess (ED), Anxiety (ED) Referrals: Jason Palacios MD [Medical Doctor] - [facility] [Outside] Additional Instructions: Follow-up with hand specialist in 2 days - call tomorrow to schedule an appointment Rest, elevate, apply heat You may take ibuprofen 800mg every 8 hour with food for pain relief. You may also try warm epsom salt soaks. *If you develop fever, chills, worsening infection sooner, return to ED
[2017-05-07] MEDS ORDERED: DOXYcycline CAP(*) 100 MG PO ONE (22:21)
[2017-05-07] MEDS ORDERED: Lidocaine/Epineph/Tetraca SOL* (LET solution) 4 ML BTL ONE (23:09)
[2017-05-07] MEDS ORDERED: ALPRAZolam TAB* 0.5 MG PO ONE (23:36)
[2017-05-07 23:53] VITALS: BP 108/42
== END 2017-05-07 23:52 | disposition home or self-care (01) ==
LOC: ED 18:48
DX: L02.512 Cutaneous abscess of left hand (principal); F41.9 Anxiety disorder, unspecified; R60.9 Edema, unspecified; F17.210 Nicotine dependence, cigarettes, uncomplicated
CPT/HCPCS: 96372; 99282; A9270-GY; J1885